=== PATIENT | female | born 1980 | race Caucasian/White ===

== ENCOUNTER 2019-11-23 05:06 | Emergency (ER) | payer MEDICAID ==
[~2019-11-23] VITALS: Ht 160 cm; Wt 106.5 kg
[~2019-11-23 05:06] MED LIST: ALBU18HF2 IH; IBUP-1984 PO; PANT40TA39 PO; PRED10TA PO
[2019-11-23 05:09] VITALS: BP 127/80
[2019-11-23] MEDS ORDERED: dexamethasone 4mg tablet PO ONE (05:25)
[2019-11-23] MEDS ORDERED: PRED20TA PO (05:26)
[2019-11-23] MEDS ORDERED: ibuprofen tablet 400 MG TABLET PO ONE (05:30)
== END 2019-11-23 06:09 | disposition home or self-care (01) ==
LOC: ER 05:07
DX: J02.9 Acute pharyngitis, unspecified (principal); G43.909 Migraine, unspecified, not intractable, without status migrainosus; J45.909 Unspecified asthma, uncomplicated; F10.99 Alcohol use, unspecified with unspecified alcohol-induced disorder; F12.90 Cannabis use, unspecified, uncomplicated; Z98.890 Other specified postprocedural states; Z79.899 Other long term (current) drug therapy; Y90.9 Presence of alcohol in blood, level not specified
CPT/HCPCS: 99283

== ENCOUNTER 2022-07-13 11:22 | Emergency (ER) | payer MEDICAID ==
[~2022-07-13] VITALS: Ht 160 cm; Wt 109.1 kg
[2022-07-13 11:38] VITALS: BP 136/79
[2022-07-13] MEDS ORDERED: morphine IR (immed. release) 30mg tablet PO STA (13:36)
[2022-07-13] MEDS ORDERED: MORP15TA PO ×2 (15:44→16:13)
== END 2022-07-13 16:20 | disposition home or self-care (01) ==
LOC: ER 11:23
DX: M54.2 Cervicalgia (principal); M25.511 Pain in right shoulder; G43.909 Migraine, unspecified, not intractable, without status migrainosus; J45.909 Unspecified asthma, uncomplicated; G89.29 Other chronic pain; F12.10 Cannabis abuse, uncomplicated; Z98.890 Other specified postprocedural states; Z79.899 Other long term (current) drug therapy; Z79.2 Long term (current) use of antibiotics; Z79.1 Long term (current) use of non-steroidal anti-inflammatories (NSAID)
CPT/HCPCS: 99283

== ENCOUNTER 2023-12-06 12:50 | Emergency (ER) | payer MEDICAID ==
[~2023-12-06] VITALS: Ht 160 cm; Wt 97.2 kg
[2023-12-06 13:02] VITALS: TEMP 98.2
[2023-12-06 14:28] VITALS: BP 133/79; PULSE 87; RESP 17; O2SAT 99
[2023-12-06] MEDS ORDERED: METH4TAB81 PO (15:27)
== END 2023-12-06 15:43 | disposition home or self-care (01) ==
LOC: ER 12:52
DX: M70.62 Trochanteric bursitis, left hip (principal); G43.909 Migraine, unspecified, not intractable, without status migrainosus; J45.909 Unspecified asthma, uncomplicated; G89.29 Other chronic pain; F12.90 Cannabis use, unspecified, uncomplicated; M19.90 Unspecified osteoarthritis, unspecified site; Z98.891 History of uterine scar from previous surgery; Z72.89 Other problems related to lifestyle; Z79.899 Other long term (current) drug therapy
CPT/HCPCS: 73502; 99283